=== PATIENT | male | born 1960 ===

== ENCOUNTER 2022-03-25 08:11 | Day surgery (SDC) | payer OTHER ==
[~2022-03-25 08:11] MED LIST: CRESTOR20 MG PO; TAMS0.4C PO
== END 2022-03-25 19:30 | disposition home or self-care (01) ==
LOC: CIR.AMB 08:11
PROVIDERS: ATTEND Colon & Rectal Surgery
DX: K64.2 Third degree hemorrhoids (principal); K64.4 Residual hemorrhoidal skin tags; K92.2 Gastrointestinal hemorrhage, unspecified; I34.1 Nonrheumatic mitral (valve) prolapse; K57.30 Diverticulosis of large intestine without perforation or abscess without bleeding; Z20.822 Contact with and (suspected) exposure to COVID-19